=== PATIENT | male | born 1930 | race Caucasian/White ===

== ENCOUNTER 2019-10-29 10:34 | Emergency (ER) | payer MEDICARE ==
[~2019-10-29] VITALS: Ht 177.8 cm; Wt 53.6 kg
[2019-10-29 12:33] LABS: BASOPHILS # (AUTO) 0.1 X10'3 (0-0.2); BASOPHILS % (AUTO) 0.8 % (0-1); EOSINOPHILS # (AUTO) 0.2 X10'3 (0-0.9); EOSINOPHILS % (AUTO) 1.7 % (0-6); HEMOGLOBIN 13.7 g/dl (14.0-17.9); LYMPHOCYTES # (AUTO) 0.6 X10'3 (1.1-4.8); LYMPHOCYTES % (AUTO) 5.3 % (21-51); MEAN CORPUSCULAR HEMOGLOBIN 32.8 PG (27.0-31.0); MEAN CORPUSCULAR HGB CONC 33.3 g/dL (33.0-36.5); MEAN CORPUSCULAR VOLUME 98.3 FL (78-98); MEAN PLATELET VOLUME 7.5 FL (7.4-10.4); MONOCYTES # (AUTO) 1.3 X10'3 (0-0.9); MONOCYTES % (AUTO) 10.9 % (2-12); NEUTROPHILS % (AUTO) 81.3 % (42-75); PLATELET COUNT 324 X10'3 (140-440); RED BLOOD COUNT 4.17 X10'6 (4.70-6.10); WHITE BLOOD COUNT 12.4 X10'3 (4.5-11.0)
[2019-10-29 12:51] LABS: ALANINE AMINOTRANSFERASE 16 U/L (12-78); ALBUMIN 3.6 G/DL (3.4-5.0); ALBUMIN/GLOBULIN RATIO 0.9 (1.1-1.5); ALKALINE PHOSPHATASE 93 IU/L (46-116); ANION GAP 8 (8-16); ASPARTATE AMINO TRANSFERASE 21 U/L (10-37); BILIRUBIN,TOTAL 0.5 MG/DL (0.1-1.0); BLOOD UREA NITROGEN 29 MG/DL (7-18); BUN/CREATININE RATIO 17.3 (5.4-32.0); CHLORIDE 105 MMOL/L (99-107); CREATININE 1.68 MG/DL (0.60-1.10); GLUCOSE 130 MG/DL (70-104); POTASSIUM 4.2 MMOL/L (3.5-5.1); SODIUM 141 MMOL/L (135-145); TOTAL CARBON DIOXIDE 28.2 MMOL/L (24-32); TOTAL PROTEIN 7.4 G/DL (6.4-8.2); eGFR 39 ML/MIN
[2019-10-29 13:29] LABS: CLARITY,URINE BLOODY (Clear); COLOR,URINE Red (Yellow); UA COLLECTION TYPE FOLEY CATH
[2019-10-29 13:39] LABS: RBC,URINE TNTC /HPF (0-2)
[2019-10-29 13:40] LABS: BACTERIA,URINE 1+ /HPF (Neg)
[2019-10-29 13:41] LABS: SQUAMOUS EPITHELIAL CELL,UR FEW /LPF (FEW)
[2019-10-29] MEDS ORDERED: cephalexin 500mg capsule PO ONE (13:55)
[2019-10-29] MEDS ORDERED: CEPH500C5 PO (13:55)
[2019-10-29 14:07] VITALS: BP 149/55
== END 2019-10-29 14:11 | disposition home or self-care (01) ==
LOC: ER 10:35
DX: R33.9 Retention of urine, unspecified (principal); N39.0 Urinary tract infection, site not specified; I10 Essential (primary) hypertension; F41.9 Anxiety disorder, unspecified; Z98.890 Other specified postprocedural states; Z79.2 Long term (current) use of antibiotics
CPT/HCPCS: 36415; 51702; 80053; 81001; 85025; 87088; 99284

== ENCOUNTER 2019-11-05 17:14 | Emergency (ER) | payer MEDICARE ==
[~2019-11-05] VITALS: Ht 172.7 cm; Wt 68.2 kg
[~2019-11-05 17:14] MED LIST: CEPH500C5 PO
[2019-11-05 17:29] VITALS: BP 145/79
--- NOTE | 2019-11-05 18:51 | NUR ---
Lujan Cath removed with no complications
== END 2019-11-05 18:58 | disposition home or self-care (01) ==
LOC: ER 17:16
DX: R33.9 Retention of urine, unspecified (principal); I10 Essential (primary) hypertension; F41.9 Anxiety disorder, unspecified; Z46.6 Encounter for fitting and adjustment of urinary device; Z98.890 Other specified postprocedural states; Z79.2 Long term (current) use of antibiotics
CPT/HCPCS: 99281

== ENCOUNTER 2019-11-06 03:52 | Emergency (ER) | payer MEDICARE ==
[~2019-11-06] VITALS: Ht 172.7 cm; Wt 52.3 kg
[2019-11-06 03:54] VITALS: BP 189/70
== END 2019-11-06 04:40 | disposition home or self-care (01) ==
LOC: ER 03:52
DX: R33.9 Retention of urine, unspecified (principal); I10 Essential (primary) hypertension; F41.9 Anxiety disorder, unspecified; Z98.890 Other specified postprocedural states; Z79.899 Other long term (current) drug therapy; Z00.00 Encounter for general adult medical examination without abnormal findings
CPT/HCPCS: 99284

== ENCOUNTER 2019-11-06 08:23 | Emergency (ER) | payer MEDICARE ==
[~2019-11-06] VITALS: Ht 172.7 cm; Wt 68.2 kg
[2019-11-06 08:27] VITALS: BP 187/85
[2019-11-06] MEDS ORDERED: LIDOcaine 2% 10ml TOPICAL JELLY (Urojet) TP ONE (09:20)
== END 2019-11-06 10:45 | disposition home or self-care (01) ==
LOC: ER 08:23
DX: R33.9 Retention of urine, unspecified (principal); I10 Essential (primary) hypertension; F41.9 Anxiety disorder, unspecified; Z98.890 Other specified postprocedural states; Z79.899 Other long term (current) drug therapy
CPT/HCPCS: 51702; 99284

== ENCOUNTER 2019-11-10 09:20 | Emergency (ER) | payer MEDICARE ==
[~2019-11-10] VITALS: Ht 172.7 cm; Wt 70.0 kg
--- NOTE | 2019-11-10 11:33 | NUR ---
pt is 89 yo male would catheter removed, was placed last for urinary retention, pt is was referred back to ER by PMD, I suggested he follow up with Dr Newton, his urologist, pt is resting quietly on chair, waiting to be evaluated
--- NOTE | 2019-11-10 13:48 | NUR ---
catheter was irrigated by [facility] with 120 ml of NS, urine is yellow and draining, pt is ready to go home and will follow up with Dr Newton, has ride home with family
[2019-11-10 13:50] VITALS: BP 178/76
== END 2019-11-10 13:52 | disposition home or self-care (01) ==
LOC: ER 09:20
DX: Z46.6 Encounter for fitting and adjustment of urinary device (principal); I10 Essential (primary) hypertension; F41.9 Anxiety disorder, unspecified; Z98.890 Other specified postprocedural states; Z79.899 Other long term (current) drug therapy
CPT/HCPCS: 99281

== ENCOUNTER 2019-11-14 12:13 | Emergency (ER) | payer MEDICARE ==
[~2019-11-14] VITALS: Ht 172.7 cm; Wt 65.9 kg
[2019-11-14 12:17] VITALS: BP 165/51
--- NOTE | 2019-11-14 14:47 | NUR ---
F/C REMOVED CATH INTACT. PT TO WELL
== END 2019-11-14 14:53 | disposition home or self-care (01) ==
LOC: ER 12:13
DX: R33.9 Retention of urine, unspecified (principal); I10 Essential (primary) hypertension; F41.9 Anxiety disorder, unspecified; Z98.890 Other specified postprocedural states; Z46.6 Encounter for fitting and adjustment of urinary device; Z79.899 Other long term (current) drug therapy
CPT/HCPCS: 51702; 99284

== ENCOUNTER 2019-11-15 00:31 | Emergency (ER) | payer MEDICARE ==
[~2019-11-15] VITALS: Ht 172.7 cm; Wt 65.0 kg
[2019-11-15 00:39] VITALS: BP 187/70
[2019-11-15] MEDS ORDERED: LIDOcaine 2% 10ml TOPICAL JELLY (Urojet) TP ONE (01:15)
[2019-11-15 01:57] LABS: COLOR,URINE YELLOW (Yellow); GLUCOSE, URINE NEGATIVE (Neg); KETONES,URINE NEGATIVE (Neg); LEUKOCYTE ESTERASE ,URINE MODERATE (Neg); NITRITES, URINE POSITIVE (Neg); OCCULT BLOOD,URINE MODERATE (Neg); PH,URINE 5.5 (4.8-8.0); PROTEIN,URINE 100 mg/dl (Neg); UROBILINOGEN,URINE 0.2 E.U/dL (0.2-1.0)
[2019-11-15 02:21] LABS: CLARITY,URINE CLOUDY (Clear); UA COLLECTION TYPE FOLEY CATH
[2019-11-15 02:22] LABS: BACTERIA,URINE 1+ /HPF (Neg); SQUAMOUS EPITHELIAL CELL,UR FEW /LPF (FEW); WBC CLUMPS,URINE FEW /HPF (NEGATIVE); WBC,URINE 30-50 /HPF (0-4)
== END 2019-11-15 02:02 | disposition home or self-care (01) ==
LOC: ER 00:32
DX: R33.8 Other retention of urine (principal); R10.32 Left lower quadrant pain; I10 Essential (primary) hypertension; F41.9 Anxiety disorder, unspecified; Z98.890 Other specified postprocedural states; Z79.2 Long term (current) use of antibiotics
CPT/HCPCS: 51702; 81001; 87077; 87088; 87186; 99284

== ENCOUNTER 2019-11-20 11:03 | Emergency (ER) | payer MEDICARE ==
[~2019-11-20] VITALS: Ht 172.7 cm; Wt 68.2 kg
[2019-11-20 11:08] VITALS: BP 166/64
--- NOTE | 2019-11-20 11:40 | NUR ---
CAROL REMOVED AND INSTRUCTIONS TO MONITOR URINE OUTPUT OVER THE NEXT 6-8 HOURS AND TO RETURN IF UNABLE TO URINATE.
== END 2019-11-20 11:42 | disposition home or self-care (01) ==
LOC: ER 11:03
DX: R33.9 Retention of urine, unspecified (principal); F41.9 Anxiety disorder, unspecified; I10 Essential (primary) hypertension; Z46.6 Encounter for fitting and adjustment of urinary device; Z98.890 Other specified postprocedural states; Z79.2 Long term (current) use of antibiotics
CPT/HCPCS: 99284

== ENCOUNTER 2019-11-20 19:23 | Emergency (ER) | payer MEDICARE ==
[~2019-11-20] VITALS: Ht 172.7 cm; Wt 68.2 kg
[2019-11-20 19:31] VITALS: BP 158/60
== END 2019-11-20 22:00 | disposition home or self-care (01) ==
LOC: ER 19:24
DX: R35.0 Frequency of micturition (principal); F41.9 Anxiety disorder, unspecified; I10 Essential (primary) hypertension; Z98.890 Other specified postprocedural states; Z00.00 Encounter for general adult medical examination without abnormal findings; Z79.899 Other long term (current) drug therapy
CPT/HCPCS: 51702; 99284

== ENCOUNTER 2020-01-25 14:47 | Emergency (ER) | payer MEDICARE ==
[~2020-01-25] VITALS: Ht 177.8 cm; Wt 52.0 kg
[2020-01-25 16:41] LABS: CLARITY,URINE CLOUDY (Clear); COLOR,URINE RED (Yellow); GLUCOSE, URINE NEGATIVE (Neg); KETONES,URINE NEGATIVE (Neg); LEUKOCYTE ESTERASE ,URINE TRACE (Neg); NITRITES, URINE NEGATIVE (Neg); OCCULT BLOOD,URINE LARGE (Neg); PH,URINE 5.5 (4.8-8.0); PROTEIN,URINE 30 mg/dl (Neg); UROBILINOGEN,URINE 0.2 E.U/dL (0.2-1.0)
[2020-01-25 17:03] LABS: UA COLLECTION TYPE FOLEY CATH
[2020-01-25 17:08] LABS: RBC,URINE TNTC /HPF (0-2); WBC,URINE 20-30 /HPF (0-4)
[2020-01-25 17:09] LABS: BACTERIA,URINE NONE SEEN /HPF (Neg); SQUAMOUS EPITHELIAL CELL,UR NONE SEEN /LPF (FEW)
[2020-01-25 17:17] VITALS: BP 178/75
[2020-01-25] MEDS ORDERED: DOXY-1 PO (22:52)
== END 2020-01-25 17:35 | disposition home or self-care (01) ==
LOC: ER 14:50
DX: R33.9 Retention of urine, unspecified (principal); R10.30 Lower abdominal pain, unspecified; I10 Essential (primary) hypertension; N40.0 Benign prostatic hyperplasia without lower urinary tract symptoms; Z98.890 Other specified postprocedural states
CPT/HCPCS: 51702; 81001; 87088; 99284

== ENCOUNTER 2020-01-25 21:21 | Emergency (ER) | payer MEDICARE ==
[~2020-01-25] VITALS: Ht 177.8 cm; Wt 84.1 kg
[2020-01-25] MEDS ORDERED: DOXYCYCLINE 100MG CAPSULE PO STA (22:49)
[2020-01-25] MEDS ORDERED: naproxen 500mg tablet PO ONE (22:50)
[2020-01-25] MEDS ORDERED: phenazopyridine 100mg tablet PO ONE (22:50)
[2020-01-25] MEDS ORDERED: DOXY-1 PO (22:52)
[2020-01-25 23:06] VITALS: BP 177/54
== END 2020-01-25 23:10 | disposition home or self-care (01) ==
LOC: ER 21:21
DX: T83.098A Other mechanical complication of other urinary catheter, initial encounter (principal); I10 Essential (primary) hypertension; Z98.890 Other specified postprocedural states; Z72.89 Other problems related to lifestyle; Y84.6 Urinary catheterization as the cause of abnormal reaction of the patient, or of later complication, without mention of misadventure at the time of the procedure; Y92.89 Other specified places as the place of occurrence of the external cause
CPT/HCPCS: 99281; 99284

== ENCOUNTER 2020-01-28 09:47 | Emergency (ER) | payer MEDICARE ==
[~2020-01-28] VITALS: Ht 177.8 cm; Wt 81.8 kg
[~2020-01-28 09:47] MED LIST changes: -CEPH500C5 PO; +DOXY-1 PO
[2020-01-28 11:59] LABS: CLARITY,URINE BLOODY (Clear); COLOR,URINE RED (Yellow); UA COLLECTION TYPE FOLEY CATH
[2020-01-28 12:17] LABS: RBC,URINE TNTC /HPF (0-2); WBC,URINE 20-30 /HPF (0-4)
[2020-01-28 12:19] LABS: BACTERIA,URINE 2+ /HPF (Neg); SQUAMOUS EPITHELIAL CELL,UR NONE SEEN /LPF (FEW)
[2020-01-28 12:49] VITALS: BP 138/69
== END 2020-01-28 12:20 | disposition home or self-care (01) ==
LOC: ER 09:48
DX: Z46.6 Encounter for fitting and adjustment of urinary device (principal); I10 Essential (primary) hypertension
CPT/HCPCS: 81001; 87088; 99284

== ENCOUNTER 2020-01-28 20:40 | Emergency (ER) | payer MEDICARE ==
[~2020-01-28] VITALS: Ht 177.8 cm; Wt 53.0 kg
[2020-01-28 20:42] VITALS: BP 179/66
--- NOTE | 2020-01-28 20:54 | NUR ---
JONATHAN SAM UPDATED OF PT. OK NOT TO ORDER PROTOCOL AT THIS TIME. WILL BLADDER SCAN PT AND UPDATE PA OF RESULT.
[2020-01-28] MEDS ORDERED: LIDOcaine 2% 10ml TOPICAL JELLY (Urojet) TP ONE ×2 (21:10→21:15)
== END 2020-01-28 22:03 | disposition home or self-care (01) ==
LOC: ER 20:40
DX: R33.9 Retention of urine, unspecified (principal); I10 Essential (primary) hypertension; N40.0 Benign prostatic hyperplasia without lower urinary tract symptoms; Z79.2 Long term (current) use of antibiotics
CPT/HCPCS: 51702; 99284